=== PATIENT | male | born 1945 | race Caucasian/White ===

== ENCOUNTER → 2020-09-19 09:16 | Outpatient (CLI) | payer MEDICARE, OTHER, SELFPAY ==
[2020-09-19 11:07] LABS: COVID19 -Nasal RAPID Negative (Negative)
== END ==
PROVIDERS: Family Provider Physician Assistant Medical; Visit Provider Nurse Practitioner
DX: Z20.822 Contact with and (suspected) exposure to COVID-19 (principal)
CPT/HCPCS: 87635; C9803

== ENCOUNTER → 2020-09-21 14:45 | Outpatient (CLI) | payer MEDICARE, OTHER, SELFPAY ==
--- NOTE | 2020-09-21 18:00 | DI.NM.S_ITS ---
DATE OF SERVICE: 09/21/2020 PROCEDURE PERFORMED: Exercise exercise treadmill stress test without imaging. REFERRING PROVIDER: Dr. Nasim Tee. INDICATIONS: The patient is a 74-year-old male with reported exertional dyspnea and chest tightness. FINDINGS: 1. The patient was able to exercise for 5 minutes 52 seconds on a standard Srikanth protocol, suggesting mildly impaired exercise capacity with an LUIS ANGEL of +7%, achieving 7.0 METs. 2. He had a borderline blunted heart rate response, achieving a maximum heart rate of 124 BPM (84% of his predicted maximum), likely secondary to atenolol effect. 3. He had a significant hypertensive blood pressure response to exercise with a resting blood pressure of 142/80 that increased to a maximum of 236/80. 4. He denied any chest discomfort or other anginal symptoms. 5. His resting ECG shows sinus bradycardia at 59 BPM with occasional PVC and an isolated inverted T-wave in lead III, but normal ST segments. His exercise tracings are corrupted by motion artifact but there is no obvious ST-segment deviation noted with exercise or in early recovery without any late ECG changes. IMPRESSION: 1. Probable normal standard exercise treadmill test for ischemia although with slightly reduced sensitivity because of a borderline blunted heart rate response to exercise. 2. Mildly impaired exercise capacity without angina. 3. He had a significant hypertensive blood pressure response to exercise. Jared Gilbert - Vinayak/zahira doc#: [id number]/job#: [id number] dd: 09/21/2020 16:50:00 dt: 09/21/2020 17:35:00 DICTATING MD/COPIES TO: Aman Storm MD; Nasim Tee MD COPIES MNE: ANEESH;
== END ==
PROVIDERS: Family Provider Physician Assistant Medical; PCP Internal Medicine; Referring Provider Internal Medicine; Visit Provider Internal Medicine
DX: R07.89 Other chest pain (principal); R06.09 Other forms of dyspnea
CPT/HCPCS: 93017

== ENCOUNTER → 2020-12-13 08:47 | Outpatient (CLI) | payer MEDICARE, OTHER, SELFPAY ==
--- NOTE | 2020-12-13 08:56 | DI.ECHO.S_ITS ---
:Reason For Study: Dyspnea : :Ordering Physician: EVE : :CANDICE Performed By: Nik Palma : :Referring: CANDICE PRADO : + + Interpretation Summary 1) Normal left ventricular thickness, size, wall motion, and systolic function (EF 55-60%). 2) Normal right ventricular size and function. 3) There is mild to moderate aortic regurgitation. There is very mild aortic stenosis (valve area 1.9cm2). 4) Hypertension present during the study (BP 180/97mmHg). 5) No prior Echo available for comparison. Procedure: A two-dimensional transthoracic echocardiogram with color flow and Doppler was performed. The study quality was technically adequate. There is no prior echocardiogram noted for this patient. A contrast injection of Definity was performed to improve assessment of LV function. The patient was in sinus rhythm with heart rates between 52-66 bpm during the exam. Left Ventricle: The left ventricle is normal in size and wall thickness. Left ventricular systolic function is normal. The ejection fraction is estimated to be 55-60%. There are no focal wall motion abnormalities. Diastolic parameters suggest a relaxation abnormality of the left ventricle, consistent with probable normal filling pressures. Right Ventricle: The right ventricle is normal in size and function. Atria: The left atrium is moderately dilated. The right atrium is normal in size. There is no Doppler evidence for an interatrial shunt. Mitral Valve: There is mild mitral annular calcification. There is mild mitral regurgitation. Aortic Valve: There is mild aortic valve sclerosis. There is mild aortic stenosis. There is mild to moderate aortic regurgitation. Tricuspid Valve: The tricuspid valve is normal in structure and function. There is mild tricuspid regurgitation. The right ventricular systolic pressure is estimated to be at least 28 mmHg based on an estimated right atrial pressure of 3 mm Hg. Pulmonic Valve: The pulmonic valve is normal in structure and function. There is mild pulmonic regurgitation. Great Vessels: The aortic root is normal size. The dimensions of the ascending aorta are normal. The IVC is of normal diameter and collapses greater than 50% with a sniff. This suggests a low right atrial pressure of 3 mm Hg. Pericardium/ Pleura There is no pericardial effusion. There is no pleural effusion. MMode/2D Measurements & Calculations LVIDd: 5.3 cm LVOT diam: 2.0 cm LVIDs: 3.7 cm Ao root diam: 2.9 cm FS: 31.2 % asc Aorta Diam: 3.3 cm IVSd: 1.1 cm LVPWd: 0.92 cm LV bustamante. diameter/BSA (cm/m^2): 2.6 LV sys. diameter/BSA (cm/m^2): 1.8 LA A2 area: 27.3 cm2 RA area: 13.9 cm2 LA A4 area: 21.8 cm2 LA length (vol): 5.5 cm LA vol: 91.6 ml LA vol index: 44.9 ml/m2 RVD1 (basal): 3.8 cm TAPSE: 2.6 cm Doppler Measurements & Calculations Ao V2 max: 169.3 cm/sec LVOT Max Will: 108.2 cm/sec Ao V2 mean: 123.9 cm/sec LV V1 max P.7 mmHg Ao max P.5 mmHg LV V1 VTI: 22.2 cm Ao mean P.7 mmHg BANG(I,D): 1.9 cm2 Ao V2 VTI: 36.9 cm BANG(V,D): 2.0 cm2 sev ratio: 0.60 BANG indexed to BSA (cm^2/m^2): 0.94 AI P1/2t: 620.0 msec AI dec slope: 236.7 cm/sec2 MV E max will: 70.2 cm/sec TR max will: 247.8 cm/sec MV A max will: 81.5 cm/sec TR max P.6 mmHg MV E/A: 0.86 PA V2 max: 125.7 cm/sec Med Peak E' Will: 6.7 cm/sec PA V2 mean: 85.2 cm/sec E/E' med: 10.4 PA mean P.3 mmHg Lat Peak E' Will: 8.0 cm/sec PA pr(Accel): 35.4 mmHg E/E' lat: 8.8 E/e' average: 9.6 MV dec time: 0.16 sec SV(LVOT): 70.9 ml Reading Physician:01:36 PM
== END ==
PROVIDERS: Family Provider Physician Assistant Medical; PCP Internal Medicine; Referring Provider Internal Medicine; Visit Provider Internal Medicine
DX: I08.3 Combined rheumatic disorders of mitral, aortic and tricuspid valves (principal); R06.00 Dyspnea, unspecified
CPT/HCPCS: C8929; Q9957

== ENCOUNTER 2020-12-14 07:50 | Emergency (ER) | payer MEDICARE, OTHER, SELFPAY ==
[2020-12-14 08:00] VITALS: BP 192/94; PULSE 73; RESP 18; TEMP 36.1; O2SAT 97; BMI 26.9
--- NOTE | 2020-12-14 08:05 | DI.RAD.S_ITS ---
PROCEDURE: XR CHEST 1V INDICATIONS: chest pain TECHNIQUE: One view of the chest was acquired. COMPARISON: None. FINDINGS: Surgical changes and devices: None. Lungs and pleura: Lungs are clear. No pleural effusions or pneumothorax. Mediastinum: Mediastinal contours appear normal. Heart size is normal. Bones and chest wall: No suspicious bony lesions. Overlying soft tissues appear unremarkable. IMPRESSION: No acute cardiopulmonary findings Dictated by: Aram Leroy M.D. on 12/14/2020 at 9:39 Approved by: Aram Leroy M.D. on 12/14/2020 at 9:41
--- NOTE | 2020-12-14 08:29 | ED.GENADULT ---
HPI - General Adult General Chief complaint: Hypertension Stated complaint: hx of high blood pressure/exhaustion x1 day Time Seen by Provider: 12/14/20 08:28 Source: patient and family () Mode of arrival: Family Vehicle Limitations: no limitations History of Present Illness HPI narrative: This is a 75-year-old male comes in with complaint of hypertension. Patient states over the last 2 evenings when he has checked his blood pressure it has been a systolic of 205-210 which he states is atypical. He states his normal baseline tends to run about 145/85. He states he regularly checks his blood pressure. He does state that 5 days ago his primary care physician started him on spironolactone, he is unclear of the exact reason but states he also had an echo yesterday ordered by his primary care physician as an outpatient here at the hospital. Patient states he takes multiple blood pressure medications including lisinopril, atenolol, diltiazem that he takes in the morning, metformin twice daily, allopurinol and a daily 81 mg aspirin. He does not have any known history of dyslipidemia, he does not have any known cardiac history is never had any prior cardiac stents. He denies any prior surgeries besides Mohs. No tobacco, he drinks an alcoholic drink in mild a monthly basis, no illicit. His primary care physician is Dr. Tee. Patient states he has noticed that he has felt maybe very slight unsteadiness compared to his normal. He has felt more fatigued and had slowly worsening shortness of breath particularly with exertion. He states he was able to take a long walk yesterday but his notes that he tires out towards the end. She states that is been kind of slowly progressive over time. Patient denies any chest pain or pressure. No shortness of breath at this moment. No nausea, no vomiting, no diaphoresis, no swelling in his extremities, he denies any abdominal or back pain. No diarrhea constipation and denies any urinary symptoms. Related Data Allergies Allergy/AdvReac Type Severity Reaction Status Date / Time Sulfa (Sulfonamide Allergy Verified 12/14/20 08:12 Antibiotics) Review of Systems Review of Systems ROS Unobtainable: All systems reviewed & are unremarkable except as noted in HPI and below Patient History Medical History (Updated 12/14/20 @ 08:49 by Rima Langston DO) Diabetes Hypertension Social History Smoking Status: Never smoker Smoking Status: Never smoker alcohol intake frequency: 0-2 drinks per day Substance Use Type: does not use Exam Narrative Exam Narrative: GENERAL: Alert and oriented x three, well-nourished male in acute distress. Patient is lying flat on the bed without any significant distress. HEENT: Head normocephalic, atraumatic, EOMI, pupils reactive, face symmetric, moist mucous membranes NECK: Supple, full range of motion CARDIOVASCULAR: Regular rate and rhythm without murmurs, rubs or gallops. RESPIRATORY: Breath sounds equal bilaterally, no wheezes rales or rhonchi. No tachypnea. No accessory muscle use. ABDOMEN: Soft, nontender. Normoactive bowel sounds all 4 quadrants. No guarding or rebound, rigidity, no mass : No CVA tenderness EXTREMITIES: Normal range of motion, edema appreciated. Neurovascularly intact NEUROLOGICAL: Cranial nerves II through XII grossly intact. Moving all extremities SKIN: Warm, dry, no petechiae, no rashes or lesions. Initial Vital Signs Initial Vital Signs: Vital Signs Temperature 97 F L 12/14/20 08:00 Pulse Rate 73 12/14/20 08:00 Respiratory Rate 18 12/14/20 08:00 Blood Pressure 192/94 H 12/14/20 08:00 Pulse Oximetry 97 12/14/20 08:00 Course Orders Ordered: ED Orders 12/14/20 08:05 XR chest 1V Stat EKG-12 Lead Stat 12/14/20 08:54 Complete Blood Count AUTO DIFF Stat Comprehensive Metabolic Panel Stat Lipase Stat NT-proBNP (BNP-Adult 18+) Stat Partial Thromboplastin Time Stat Prothrombin Time INR Stat Troponin & CK Cardiac Panel Stat Vital Signs Vital signs: Vital Signs - 8 hr 12/14/20 08:00 12/14/20 09:00 12/14/20 09:19 Temperature 97 F L Pulse Rate 73 61 57 L Respiratory Rate 18 14 17 Blood Pressure 192/94 H 150/92 H Pulse Oximetry 97 99 94 12/14/20 09:30 Temperature Pulse Rate 59 L Respiratory Rate 14 Blood Pressure 141/75 H Pulse Oximetry 95 Medical Decision Making Lab Data Lab results reviewed: Yes I reviewed the patient's lab results. Result diagrams: 12/14/20 08:54 12/14/20 08:54 Labs: Lab Results 12/14/20 12/14/20 12/14/20 Range/Units 08:54 08:54 08:54 WBC 7.2 (4.5-11.0) X10^3/uL RBC 5.06 (4.5-5.9) X10^6/uL Hgb 15.4 (13.5-17.5) g/dL Hct 45.2 (41-53) % MCV 89.3 (80-100) fL MCH 30.6 (26-34) PG MCHC 34.2 (30-36) % RDW 14.1 (11.6-14.8) % Plt Count 191 (150-400) X10^3/uL Neut % (Auto) 75.6 H (50-75) % Lymph % (Auto) 13.9 L (25-40) % Lipscomb % (Auto) 7.3 (3-14) % Eos % (Auto) 2.5 (2-4) % Baso % (Auto) 0.7 (0-2) % Neut # (Auto) 5500 (0181-2378) /uL Lymph # (Auto) 1000 L (4047-1616) /uL Lipscomb # (Auto) 500 (0-900) /uL Eos # (Auto) 200 (0-450) /uL Baso # (Auto) 0 (0-100) /uL PT 13.2 H (10.1-12.7) SECONDS INR 1.2 (0.9-1.3) APTT 37 H (26.4-36.2) SECONDS Sodium 135 L (137-145) mmol/L Potassium 4.7 (3.4-5.1) mmol/L Chloride 100 (98-107) mmol/L Carbon Dioxide 26 (22-32) mmol/L BUN 19 (9-20) mg/dL Creatinine 0.82 (0.66-1.25) mg/dL Estimated GFR > 60.0 (>60) mL/min BUN/Creatinine Ratio 23.2 H (6-22) Glucose 122 H (80-110) mg/dL Calcium 9.7 (8.4-10.2) mg/dL Total Bilirubin 0.8 (0.2-1.3) mg/dL AST 25 (17-59) IU/L ALT 18 (<50) IU/L Alkaline Phosphatase 69 (38-126) U/L Total Creatine Kinase 76 (55-170) U/L CK-MB (CK-2) TNP CK-MB (CK-2) Rel Index TNP Troponin I < 0.012 (0.01-0.034) ng/mL NT-Pro-B Natriuret Pep 121 (<125) pg/mL Total Protein 7.7 (6.3-8.2) g/dL Albumin 4.8 (3.5-5.0) g/dL Globulin 2.9 (1.7-4.1) g/dL Albumin/Globulin Ratio 1.7 (1.0-2.8) Lipase 26 (23-300) U/L 12/14/20 Range/Units 08:54 WBC (4.5-11.0) X10^3/uL RBC (4.5-5.9) X10^6/uL Hgb (13.5-17.5) g/dL Hct (41-53) % MCV (80-100) fL MCH (26-34) PG MCHC (30-36) % RDW (11.6-14.8) % Plt Count (150-400) X10^3/uL Neut % (Auto) (50-75) % Lymph % (Auto) (25-40) % Lipscomb % (Auto) (3-14) % Eos % (Auto) (2-4) % Baso % (Auto) (0-2) % Neut # (Auto) (8251-1960) /uL Lymph # (Auto) (6387-1343) /uL Lipscomb # (Auto) (0-900) /uL Eos # (Auto) (0-450) /uL Baso # (Auto) (0-100) /uL PT (10.1-12.7) SECONDS INR (0.9-1.3) APTT (26.4-36.2) SECONDS Sodium (137-145) mmol/L Potassium (3.4-5.1) mmol/L Chloride (98-107) mmol/L Carbon Dioxide (22-32) mmol/L BUN (9-20) mg/dL Creatinine (0.66-1.25) mg/dL Estimated GFR (>60) mL/min BUN/Creatinine Ratio (6-22) Glucose (80-110) mg/dL Calcium (8.4-10.2) mg/dL Total Bilirubin (0.2-1.3) mg/dL AST (17-59) IU/L ALT (<50) IU/L Alkaline Phosphatase (38-126) U/L Total Creatine Kinase (55-170) U/L CK-MB (CK-2) CK-MB (CK-2) Rel Index Troponin I (0.01-0.034) ng/mL NT-Pro-B Natriuret Pep Cancelled (<125) pg/mL Total Protein (6.3-8.2) g/dL Albumin (3.5-5.0) g/dL Globulin (1.7-4.1) g/dL Albumin/Globulin Ratio (1.0-2.8) Lipase (23-300) U/L Imaging Data Chest x-ray: Radiologist's Impression: [address] [id number] ReportSigned Patient: Jared Gilbert AMR#: [id number]: 1945cct:[id number]/Sex: 75 / MDate of Service: 12/14/20Loc: EDAccession Number: [id number] Procedure: XR chest 1V Ordering Provider: Rima Langston D.O. PROCEDURE: XR CHEST 1V INDICATIONS: chest pain TECHNIQUE: One view of the chest was acquired. COMPARISON: None. FINDINGS: Surgical changes and devices: None. Lungs and pleura: Lungs are clear. No pleural effusions or pneumothorax. Mediastinum: Mediastinal contours appear normal. Heart size is normal. Bones and chest wall: No suspicious bony lesions. Overlying soft tissues appear unremarkable. IMPRESSION: No acute cardiopulmonary findings Dictated by: Aram Leroy M.D. on 12/14/2020 at 9:39 Approved by: Aram Leroy M.D. on 12/14/2020 at 9:41 ECG Data Attestation: I personally reviewed and interpreted this ECG as follows: Interpretation: Sinus rhythm, possible left atrial enlargement, LVH. Rate of 68, MD 162 QRS of 92 and QTC of 391. Patient has Q-waves in 1 and aVL. 1 mm of elevation in V2, not appreciated consistently in other leads. Patient does not have prior EKG available for comparison. [facility] Narrative Additional Information: This is a 75-year-old male with complaint of hypertension, fatigue and slowly progressive shortness of breath with exertion. Patient just had echo yesterday which I do not have access to. He was also started on spironolactone 5 days ago and I suspect he may be having some component of CHF. His blood pressure is 160 on recheck here in the department and will continue to monitor. Patient does take all of his blood pressure medications in the morning and it may be helpful to adjust these so that he takes 1 in the evening as well. Labs show no major abnormality, chest x-ray is negative and EKG show no obvious new ischemic changes but I do not have any for comparison. Patient's blood pressure was quite elevated earlier this morning. His hypertension has been improving we did discuss that he may wish to adjust 1 of his medications to be taken in the evening as he takes all his blood pressure medications in the morning. Discharge Plan Departure Patient Disposition: Home Clinical Impression: Hypertension Instructions: Treatments for High Blood Pressure: More Than Just Taking a Pill, High Blood Pressure (Hypertension) (Alternative Therapy) Activity Restrictions/Additional Instructions: Follow up with your physician in the next week for recheck. Continue your home medications as prescribed. You may wish to adjust your medications and one of your blood pressure medications in the evening. This may improve your hypertension overnight. Continue your home medications as prescribed. Please return for fevers, new chest pain, shortness of breath, lightheadedness or passing out, persistent vomiting, black or bloody stools, new swelling in her extremities or other new or concerning symptoms. Referrals: Nasim Tee MD [Primary Care Provider] -
[2020-12-14 09:00] VITALS: BP 150/92; PULSE 61; RESP 14; O2SAT 99
[2020-12-14 09:01] LABS: Add Manual Diff / Slide Review NO; Basophils Absolute Auto 0 /uL (0-100); Basophils Percent Auto 0.7 % (0-2); Eosinophils Absolute Auto 200 /uL (0-450); Eosinophils Percent Auto 2.5 % (2-4); Hematocrit 45.2 % (41-53); Hemoglobin 15.4 g/dL (13.5-17.5); Lymphocytes Absolute Auto 1000 /uL (1100-4500); Lymphocytes Percent Auto 13.9 % (25-40); Mean Corpuscular HGB Conc 34.2 % (30-36); Mean Corpuscular Hemoglobin 30.6 PG (26-34); Mean Corpuscular Volume 89.3 fL (80-100); Monocytes Absolute Auto 500 /uL (0-900); Monocytes Percent Auto 7.3 % (3-14); Neutrophils Absolute Auto 5500 /uL (1500-7000); Neutrophils Percent Auto 75.6 % (50-75); Platelet Count 191 X10^3/uL (150-400); Red Blood Cell Count 5.06 X10^6/uL (4.5-5.9); Red Cell Distribution Width 14.1 % (11.6-14.8); White Blood Cell Count 7.2 X10^3/uL (4.5-11.0)
[2020-12-14 09:10] LABS: INR 1.2 (0.9-1.3); Prothrombin Time 13.2 SECONDS (10.1-12.7)
[2020-12-14 09:12] LABS: PTT Partial Thromboplastin Tim 37 SECONDS (26.4-36.2)
[2020-12-14 09:13] LABS: Alanine Aminotransferase 18 IU/L (<50); Albumin 4.8 g/dL (3.5-5.0); Albumin Globulin Ratio 1.7 (1.0-2.8); Alkaline Phosphatase 69 U/L (38-126); Aspartate Aminotransferase 25 IU/L (17-59); BUN Creatinine Ratio 23.2 (6-22); Bilirubin Total 0.8 mg/dL (0.2-1.3); Blood Urea Nitrogen 19 mg/dL (9-20); Calcium 9.7 mg/dL (8.4-10.2); Carbon Dioxide 26 mmol/L (22-32); Chloride 100 mmol/L (98-107); Creatine Kinase 76 U/L (55-170); Estimated Glomerular Filt Rate > 60.0 mL/min (>60); Globulin 2.9 g/dL (1.7-4.1); Glucose 122 mg/dL (80-110); HEMOLYSIS < 15 (0-50); Lipase 26 U/L (23-300); Potassium 4.7 mmol/L (3.4-5.1); Sodium 135 mmol/L (137-145); Total Protein 7.7 g/dL (6.3-8.2)
[2020-12-14 09:19] VITALS: PULSE 57; RESP 17; O2SAT 94
[2020-12-14 09:25] LABS: NT-proBNP (BNP-Adult 18+) 121 pg/mL (<125); Troponin I < 0.012 ng/mL (0.01-0.034)
[2020-12-14 09:30] VITALS: BP 141/75; PULSE 59; RESP 14; O2SAT 95
[2020-12-14 10:00] VITALS: BP 120/76; PULSE 52; RESP 10; O2SAT 97
== END 2020-12-14 10:26 | disposition home or self-care (01) ==
PROVIDERS: Emergency Provider Emergency Medicine; Family Provider Physician Assistant Medical; PCP Internal Medicine
DX: I10 Essential (primary) hypertension (principal); R07.9 Chest pain, unspecified; R06.02 Shortness of breath
CPT/HCPCS: 36415; 71045; 80053; 82550; 83690; 83880; 84484; 85025; 85610; 85730; 93005; 99284

== ENCOUNTER → 2021-01-18 10:27 | Outpatient (CLI) | payer MEDICARE, OTHER, SELFPAY | PROVIDERS: Family Provider Physician Assistant Medical; PCP Internal Medicine; Referring Provider Internal Medicine; Visit Provider Internal Medicine | DX: I10 Essential (primary) hypertension (principal); Z53.8 Procedure and treatment not carried out for other reasons ==

== ENCOUNTER → 2023-09-29 15:46 | Outpatient (CLI) | payer MEDICARE, OTHER, SELFPAY | LOC: RESP 15:47 | PROVIDERS: Family Provider Physician Assistant Medical; PCP Nurse Practitioner; Referring Provider Internal Medicine Cardiovascular Disease; Visit Provider Internal Medicine Cardiovascular Disease | DX: R06.02 Shortness of breath (principal); R07.89 Other chest pain | CPT/HCPCS: 94060; 94726; 94729 ==